=== PATIENT | female | born 1950 | race Caucasian/White ===

== ENCOUNTER → 2019-09-14 | Outpatient (CLI) | payer MEDICARE ==
[2019-09-14 12:32] LABS: HCT 38.5 % (34.0-46.0); HGB 12.4 gm/dL (11.4-16.0); MCH 30.6 pg (25.0-35.0); MCHC 32.2 g/dL (31.0-37.0); MCV 95.1 fL (80.0-100.0); Mean Platelet Volume 7.2; Platelet Count 314 k/uL (150-450); RBC 4.05 m/uL (3.80-5.40); RDW 12.8 % (11.5-15.5); WBC 6.9 k/uL (3.8-10.6)
[2019-09-14 12:39] LABS: INR 0.9 (<1.2); Partial Thromboplastin Time 22.8 sec (22.0-30.0); Prothrombin Time 9.6 sec (9.0-12.0)
[2019-09-14 12:40] LABS: Appearance,Urine Clear (Clear); Bilirubin,Urine Negative (Negative); Blood,Urine Negative (Negative); Color,Urine Light Yellow; Glucose,Urine (UA) Negative (Negative); Ketones,Urine Negative (Negative); Leukocyte Esterase,Urine Negative (Negative); Nitrite,Urine Negative (Negative); Protein,Urine Negative (Negative); Specific Gravity,Urine 1.007 (1.001-1.035); Urobilinogen,Urine <2.0 mg/dL (<2.0)
[2019-09-14 12:45] LABS: ALT 16 U/L (4-34); AST 24 U/L (14-36); African American GFR (CKD) >90 (>60 ml/min/1.73 sqM); Albumin 3.5 g/dL (3.5-5.0); Alkaline Phosphatase 75 U/L (38-126); Anion Gap 4 mmol/L; Blood Urea Nitrogen 14 mg/dL (7-17); Carbon Dioxide 30 mmol/L (22-30); Chloride 104 mmol/L (98-107); Glucose 80 mg/dL (74-99); Non-African American GFR(CKD) >90 (>60 ml/min/1.73 sqM); Potassium 4.5 mmol/L (3.5-5.1); Sodium 138 mmol/L (137-145); Total Bilirubin 0.2 mg/dL (0.2-1.3); Total Protein 5.8 g/dL (6.3-8.2)
== END | disposition home or self-care (01) ==
LOC: LABPAT 10:56
PROVIDERS: ATTEND Orthopaedic Surgery
DX: Z01.818 Encounter for other preprocedural examination (principal); Z01.812 Encounter for preprocedural laboratory examination
CPT/HCPCS: 80053; 81003; 85027; 85610; 85730; 87070

== ENCOUNTER 2019-09-25 12:48 | Day surgery (SDC) | payer MEDICARE ==
[2019-09-24 12:26] VITALS: BMI 19.3
[~2019-09-25 12:48] MED LIST: ACETAMINOPHEN TAB 500 MG TAB PO ONE; BISACODYL 10 MG SUPP RECTAL PRN; DEXAMETHASONE SOD PHOSPHATE 10 MG/ML 1 ML VIAL IV ONE; DIAZEPAM 5 MG TAB PO PRN; GABAPENTIN 300 MG CAP PO ONE; HYDROcodone/APAP 5-325MG 1 EACH TAB PO PRN; HYDROmorphone 0.5 MG/0.5 ML SYRINGE IVP PRN; LIDOCAINE 1% (10MG/ML) FOR IV START INTRADERMA PRN; MAGNESIUM HYDROXIDE 2,400 MG/10 ML CUP PO PRN; MELOXICAM 7.5 MG TAB PO ONE; NA PHOS,M-B/NA PHOS,DI-BA 133 ML ENEMA RECTAL PRN; NALOXONE 0.4 MG/ML 1 ML VIAL IV PRN; ONDANSETRON 4 MG/2 ML VIAL IVP ONE; ONDANSETRON 4 MG/2 ML VIAL IVP PRN; ROPIVACAINE 246.25 MG, EPINEPHrine 0.5 MG, KETOROLAC 30 MG, cloNIDine HCL/PF 80 MCG, WA... MISCELLANE ONE; SCOPOLAMINE 1.5MG/72HR PATCH TRANSDERM ONE; TRANEXAMIC ACID 1,000 MG in SODIUM CHLORIDE 0.9% 100 ML IVPB ONE; hydrOXYzine PAMOATE 25 MG CAP PO PRN
[2019-09-25] MEDS: LACTATED RINGERS 1,000 ML IV SCH (13:23)
[2019-09-25] MEDS ORDERED: MIDAZOLAM 2 MG/2 ML VIAL IV ONE (13:35)
[2019-09-25] MEDS ORDERED: MIDAZOLAM 2 MG/2 ML VIAL ONE (13:59)
[2019-09-25] MEDS ORDERED: SODIUM CHLORIDE 0.9% 100 ML BAG ONE (13:59)
[2019-09-25] MEDS ORDERED: TRANEXAMIC ACID 1,000 MG/10 ML VIAL ONE (13:59)
[2019-09-25] MEDS ORDERED: fentaNYL (PF) 50 MCG/ML 2 ML AMP ONE (13:59)
[2019-09-25] MEDS ORDERED: ceFAZolin 3,000 MG in SODIUM CHLORIDE 0.9% IRRIGATIO 3,000 ML IRRIGATION ONE (14:03)
[2019-09-25] MEDS ORDERED: ROPIVACAINE 0.2%-NS ON-Q PUMP 1,090 MG, EMPTY PAIN BALL 1 EACH MISCELLANE PRN (14:39)
--- NOTE | 2019-09-25 14:39 | P.ANPRN ---
Procedure Note - Anesthesia - Nerve Block Performed Left Adductor Canal Infusion Date of Procedure: 09/25/19 Procedure Start Time: 13:34 Procedure Stop Time: 13:48 Location of Patient: PreOp Indication: Acute Post-Operative Pain, Requested by Surgeon Sedation Type: Sedate with meaningful contact maintained Preparation: Sterile Prep, Sterile Dressing Position: Supine Catheter: Indwelling Needle Types: Pajunk Needle Gauge: 21 Ultrasound used to visualize needle placement: Yes Ultrasound used to observe medication spread: Yes Blood Aspirated: No Pain Paresthesia on Injection Noted: No Resistance on Injection: Normal Image Stored and Saved: Yes Events: Uneventful and Well Tolerated (20 mls of ropivacaine 0.5%)
--- NOTE | 2019-09-25 15:33 | P.OP ---
Date of Procedure: 09/25/19 Preoperative Diagnosis: Severe medial compartment osteoarthritis left knee Postoperative Diagnosis: Severe tricompartmental osteoarthritis left knee Procedure(s) Performed: Left total knee arthroplasty Implants: [employer] Nephew Cruciate Retaining Journey II CR Oxinium Femoral Component size 6, left Justin & Nephew Journey Nonporous Tibial Baseplate size 5, left [employer]hew Journey II DEEP DISHED, XLPE Articular Insert, 9 mm, size 5-6 Jsutin [employer] Nephew Lilly II Resurfacing Patellar Component, Oval, 29 mm All components were cemented using Palacose R bone cement. The articulation is Oxinium on polyethylene. Anesthesia: spinal Surgeon: Frank Mooney Electrical Engineering Manager #1: [place] Estimated Blood Loss (ml): 50 Pathology: other (Bone and cartilage) Condition: stable Disposition: PACU Indications for Procedure: After failure of conservative treatment we discussed the surgical and nonsurgical treatment options at length. Patient wishes to proceed with a medial unicompartmental knee arthroplasty. The possibility of a conversion to a total knee arthroplasty was also discussed with the patient. She is aware of this as well. Complications specific to this procedure were discussed at length, including but not limited to infection, bleeding, stiffness, and nerve injury. Covid-19 was also discussed at length with the patient, and they are aware of the current policies and procedures. The patient was given the option of delaying surgery, but they elect to proceed knowing these risks. Patient is aware of all these complications and informed consent was obtained Operative Findings: The operative findings are consistent with severe tricompartmental osteoarthritis of the left knee. Due to the severe tricompartmental osteoarthritis, a unicompartmental knee replacement was not indicated based on the intraoperative findings. Description of Procedure: Patient was seen in the preoperative area consent was reviewed and operative site was marked with a skin marker. An adductor canal pain catheter was placed by anesthesia in the preoperative area. Patient was then brought to the operating room and given preoperative antibiotics intravenously. A spinal anesthetic was administered by the anesthesia department. A tourniquet was placed on the upper thigh and the lower extremity was prepped and draped in usual sterile fashion. A gram of transexamic acid was given. A universal timeout was then performed which confirmed the patient's name, surgical site, ALLERGIES, and consent. The lower extremity was then exsanguinated and tourniquet was inflated to 250 mmHg. A standard and anterior midline approach to the knee was performed. The skin and subcutaneous tissue was dissected down to the patellar tendon. A medial parapatellar arthrotomy was then performed. The knee was then visually inspected. There is found to be severe articular damage in the medial, lateral, and patellofemoral compartments. Based on this fact, a medial unicompartmental knee replacement was not indicated, and the decision was made to proceed on with a total knee arthroplasty. The knee was then extended, the patellar was everted, and the knee was again flexed. The patellar fat pad was removed in order to enhance exposure. Anterior horns of both menisci were excised, and a release was performed to the posterior medial aspect of the knee. On gross visual inspection, there was complete loss of articular cartilage in the medial and patellofemoral joint spaces. There was also significant cartilage damage in the lateral compartment. There were multiple periarticular osteophytes which were then removed with a Ronguer. The femoral canal was then opened with the 9.5 mm intramedullary drill. The 8 mm intramedullary danna was then inserted into the femoral canal. The distal femoral cutting guide was then placed and set for 5 of valgus. The distal femoral cutting block was then pinned in place. The intramedullary danna was then removed, and the distal femur was then cut. The cutting block was then removed and the cut was checked for symmetry. Next, the sizing guide was then placed and set for 3 external rotation based off of the epicondylar axis and Whitesides line. Pins were then placed and the drill holes, and the femur was sized with the sizing stylus. The pins were then removed, and the sizing guide was then removed. The spikes of the femoral block was then placed into the predrilled holes, and malleted into place. Two 45 mm pins were then placed into the fixation holes on the cutting block. An daniel wing was then used to ensure there would be no notching with the anterior cut. The anterior condyles were cut without notching. The anterior cord cut was then performed, followed by the posterior cut, posterior chamfer cut, and the anterior chamfer cut. The collateral ligaments were protected during the entire process. The cutting block was then removed, and the femoral canal was plugged with autologous bone. Attention was then directed to the tibia. The remaining ACL was removed with a Ronguer, and the tibia was then gently subluxed forward with a large bent knee retractor. Any remaining menisci was excised. The posterior lateral corner was cauterized in order to cauterize the lateral geniculate artery. The extra medullary tibial cutting guide was then placed, set for the appropriate rotat ion, slope, and depth of resection. The proximal tibia cutting guide was then pinned in place. Proximal tibia was then cut and sized. Next trials were then placed with the appropriate-sized insert. The knee was able to fully extend and flex to 130 and was stable throughout all range of motion. The knee was then extended, patella everted. Patella was then measured, and then using an osteotomy guide, the patella was cut at the appropriate level. The patella was then measured and drilled and the patella trial was then placed. The knee was then taken through range of motion with the patella trial and the patella tracked normally. The knee was then extended patella trial was then removed and the patella was everted. Knee was then flexed and lug holes were drilled through the femoral trial and the femoral trial was then removed. The tibial was then exposed, and the tibial broach guide was then pinned in place after it was set for the appropriate rotation to allow for the most coverage without overhang. The tibia was then reamed and broached. The cut surfaces of bone were then irrigated with pulsatile lavage. The posterior structures were injected with the ropivacaine solution. The knee was also irrigated with Irrisept solution. The components were then opened, the cement was mixed, and the components were then cemented in place. The cement was allowed to harden with the knee in full extension. While the cement was hardening, the remaining soft tissues were then injected with a ropivacaine solution, which consisted of 246.25 mg of ropivacaine, 0.5 mg of epinephrine, 30 mg of Toradol, 80 g of clonidine, and 48.45 mL of sterile water, for a total of 100 mL of fluid injected. After the cemented hardened. The tourniquet was released, and hemostasis was obtained. A second gram of transexamic acid was given. The knee was again irrigated. The knee was again taken through range of motion and found to be stable throughout all range of motion of 0-130, and the patella tracked normally. The fascia was then closed with #2 strata fix suture. The subcutaneous tissue was closed with 3-0 Vicryl and 3-0 strata fix. Dermabond glue was used for the skin and placed with the knee in flexion. The patient was placed in a sterile silver dressing. Patient was then transferred to recovery room in stable condition. The laboratory assistant OSCAR Caceres was required due the complexity surgery and the need for a skilled certified surgical first assistant. She assisted in positioning, draping, retraction, and closure of the wound.
[2019-09-25] MEDS ORDERED: LACTATED RINGERS 1,000 ML IV ONE (15:49)
--- NOTE | 2019-09-25 16:37 | XR ---
EXAMINATION TYPE: XR knee limited LT DATE OF EXAM: 09/25/2019 COMPARISON: None HISTORY: Replacement TECHNIQUE: 2 view left knee FINDINGS: Tibial and femoral components of in place. Postsurgical changes are within the soft tissues . No acute fractures or dislocations are evident. IMPRESSION: 1. No fracture post knee replacement
[2019-09-25] MEDS: SODIUM CHLORIDE 0.9% 1,000 ML IV SCH (17:37)
[2019-09-25] MEDS ORDERED: SENNOSIDES-DOCUSATE SODIUM 1 EACH TAB PO SCH (21:00)
[2019-09-25] MEDS: ASPIRIN 325 MG TAB PO SCH (21:46)
--- NOTE | 2019-09-26 01:23 | P.CONS ---
History of Present Illness - Reason for Consult Consult date: 09/25/19 Medical management - Chief Complaint Elective left total knee arthroplasty - History of Present Illness Patient is a 68-year-old female with a known history of smoking and osteoarthritis was admitted to the hospital for elective left total knee arthroplasty due to severe medial compartment osteoarthritis of the left knee. Patient states that she could not feel any pain at this time. Patient is currently morphine pump. Denies any complaints of fever or chills. No nausea vomiting or abdominal pain or diarrhea. No headache or dizziness or lightheadedness. No chest pain or shortness breath. Patient has been afebrile. Blood pressure was slightly weighted prior to surgery at 146/71. Currently saturating well on room air. Review of Systems Constitutional: Patient denies any fever or chills . No generalized weakness or weight loss. Abdomen: Patient denied nausea vomiting and diarrhea and abdominal pain. Cardiovascular: Patient denies any chest pain or short of breath no palpitations. Respiratory: patient denied any cough is from production. No shortness of breath Neurologic: Patient denied any numbness or tingling headache. Musculoskeletal: Patient denies any complaints of joint swelling or deformity. Skin: negative Psychiatric: Negative Endocrine: No heat or cold intolerance. No recent weight gain. Genitourinary: No dysuria or hematuria. All other 14 point ROS negative except the above Past Medical History Past Medical History: Osteoarthritis (OA) History of Any Multi-Drug Resistant Organisms: None Reported Additional Past Surgical History / Comment(s): COLONOSCOPY Past Anesthesia/Blood Transfusion Reactions: No Reported Reaction Smoking Status: Former smoker Past Alcohol Use History: Occasional Additional Past Alcohol Use History / Comment(s): QUIT SMOKING 25+YEARS AGO Past Drug Use History: None Reported - Past Family History Mother Family Medical History: Cancer Medications and Allergies Home Medications Medication Instructions Recorded Confirmed Type Celecoxib [CeleBREX] 100 mg PO DAILY 09/24/19 09/25/19 History traZODone HCL [Desyrel] 50 mg PO HS PRN 09/24/19 09/25/19 History Allergies Allergy/AdvReac Type Severity Reaction Status Date / Time iodine AdvReac Hallucinati Verified 09/25/19 13:14 ons mercury (elemental) AdvReac Hallucinati Verified 09/25/19 13:14 ons Physical Exam Vitals: Vital Signs Temp Pulse Pulse Resp BP Pulse Ox 09/25/19 16:20 87 16 111/59 96 09/25/19 16:05 64 16 110/60 97 09/25/19 15:50 97 F L 67 18 110/59 96 09/25/19 13:55 68 16 115/65 99 09/25/19 13:35 75 16 125/68 98 09/25/19 13:04 98.6 F 78 16 146/71 96 Intake and Output 09/25/19 09/25/19 09/25/19 06:59 14:59 22:59 Intake Total 1051 300 Output Total 50 Balance 1001 300 Intake: IV 1051 300 Output: Estimated Blood Loss 50 Other: Weight 53.4 kg 53.4 kg PHYSICAL EXAMINATION: Patient is lying in the bed comfortably, no acute distress, awake alert and oriented.. HEENT: Normocephalic. Neck is supple. Pupils reactive. Nostrils clear. Oral cavity is moist. Ears reveal no drainage. Neck reveals no JVD, carotid bruits, or thyromegaly. CHEST EXAMINATION: Trachea is central. Symmetrical expansion. , Bibasilar diminished air entry, Lung calle clear to auscultation and percussion. CARDIAC: Normal S1, S2 with no gallops. No murmurs ABDOMEN: Soft. Bowel sounds normal. No organomegaly. No abdominal bruits. Extremities: reveal no edema. No clubbing or cyanosis Neurologically awake, alert, oriented x3 with well-coordinated movements. No focal deficits noted Skin: No rash or skin lesions. Psychiatric: Coperative. Nonsuicidal Musculoskeletal: No joint swelling or deformity. Normal range of motion. Assessment and Plan Assessment: Status post left total knee arthroplasty. POD #0 Osteoarthritis Previous history of smoking DVT prophylaxis Plan: Patient will be continued on current pain medications and bowel regimen. Encourage incentive spirometry and ambulation. We will follow-up closely and further recommendations based on the clinical course. Monitor H&H. Thank you for your consult.
[2019-09-26] MEDS: SODIUM CHLORIDE 0.9% 1,000 ML IV SCH (02:43)
[2019-09-26] MEDS: LACTATED RINGERS 1,000 ML IV SCH (04:46)
[2019-09-26 06:15] VITALS: PULSE 76
--- NOTE | 2019-09-26 06:40 | P.PN ---
Progress Note - Text Progress Note Date: 09/26/19 The patient is doing well status post total knee replacement. Pain is well con trolled by a combination of local anesthetic infusion through the adductor canal catheter and oral analgesics. There are no signs of infection around the catheter skin entry site. The local anesthetic infusion will be continued as per protocol.
[2019-09-26 07:58] LABS: Basophils % (A) 0 %; Eosinophils # (A) 0.1 k/uL (0-0.7); Eosinophils % (A) 1 %; HCT 35.1 % (34.0-46.0); Lymphocytes # (A) 2.5 k/uL (1.0-4.8); Lymphocytes % (A) 20 %; MCH 30.2 pg (25.0-35.0); MCHC 31.5 g/dL (31.0-37.0); MCV 95.9 fL (80.0-100.0); Mean Platelet Volume 7.7; Monocytes # (A) 0.8 k/uL (0-1.0); Monocytes % (A) 6 %; Neutrophils # (A) 8.8 k/uL (1.3-7.7); Neutrophils % (A) 71 %; Platelet Count 264 k/uL (150-450); RBC 3.66 m/uL (3.80-5.40); RDW 12.7 % (11.5-15.5); WBC 12.3 k/uL (3.8-10.6)
[2019-09-26 08:14] VITALS: BP 100/62; RESP 16; TEMP 97.9
[2019-09-26] MEDS ORDERED: HYDROcodone/APAP 7.5-325MG 1 EACH TAB PO PRN ×2 (08:22)
--- NOTE | 2019-09-26 08:48 | P.DS ---
Providers Expected date of discharge: 09/26/19 Attending physician: Frank Mooney Consults: 09/25/19 11:21 Consult Physician Routine Consulting Provider: Jennyfer Rosas Consult Reason/Comments: medical management Do you want consulting provider notified?: Yes Primary care physician: Yahir Devlin - Discharge Diagnosis(es) (1) Osteoarthritis of left knee Current Visit: Yes Status: Acute (2) Status post total left knee replacement Current Visit: Yes Status: Acute Hospital Course: This is a 68-year-old female with known history of degenerative arthritis of the left knee. The patient presents for evaluation. After discussion and consideration patient elected to proceed with medial unicompartmental knee arthroplasty with possible total knee arthroplasty. The patient is seen preoperatively by Dr. Mooney and medically cleared for surgery by their primary care physician. Patient is admitted to [facility] on 09/25/2019 and left total knee arthroplasty is performed on this day. The procedures performed without complication or sequelae. The patient is doing well postoperatively. Labs and vital signs are stable on day of discharge. On day of discharge patient's knee incision is healing well. There is minimal erythema. There is no drainage noted at this time. There is minimal soft tissue swelling to the knee. Patient has full foot and ankle motion without difficulty or pain. Calf is soft and nontender to palpation. Neurovascular status to the left lower extremity is intact. Patient is discharged home in good condition. Opioid start talking form is reviewed and signed at patient bedside. Please see med rec for accurate list of home medications. Plan - Discharge Summary Discharge Rx Participant: Yes New Discharge Prescriptions: New Aspirin 325 mg PO BID #60 tab HYDROcodone/APAP 7.5-325MG [[place] 7.5-325] 1 - 2 tab PO Q6H PRN #56 tab PRN Reason: Pain Sennosides [Senokot] 2 tab PO DAILY PRN #60 tablet PRN Reason: Constipation No Action traZODone HCL [Desyrel] 50 mg PO HS PRN PRN Reason: Insomnia Celecoxib [CeleBREX] 100 mg PO DAILY Discharge Medication List Celecoxib [CeleBREX] 100 mg PO DAILY 09/24/19 [History] traZODone HCL [Desyrel] 50 mg PO HS PRN 09/24/19 [History] Aspirin 325 mg PO BID #60 tab 09/26/19 [Rx] HYDROcodone/APAP 7.5-325MG [[place] 7.5-325] 1 - 2 tab PO Q6H PRN #56 tab 09/26/19 [Rx] Sennosides [Senokot] 2 tab PO DAILY PRN #60 tablet 09/26/19 [Rx] Follow up Appointment(s)/Referral(s): Yahir Devlin MD [Primary Care Provider] - 1 Week Frank Mooney DO [Doctor of Osteopathic Medicine] - 10/10/19 10:00 am Ambulatory/Diagnostic Orders: Continuous Passive Motion (CPM) Machine [DME.AMB1] Time Frame: 3 Weeks, Location: None Selected Patient Instructions/Handouts: *Surgery [facility] - On-Q Pain Pump Discharge Instructions, Knee Replacement (DC) Activity/Diet/Wound Care/Special Instructions: Weightbearing as tolerated with a walker. CPM 5-6h daily. Leave dressing intact. May be removed by home care nurse or by patient in 10 days. May shower with dressing on. Recommend use of compression stockings daily until follow up to help prevent swelling and blood clots. May remove at night before sleeping. Please follow up with [facility] and call with any questions or concerns, . Discharge Disposition: HOME WITH HOME HEALTH SERVICES
[2019-09-26] MEDS ORDERED: MELOXICAM 7.5 MG TAB PO SCH (09:00)
[2019-09-26] MEDS: ASPIRIN 325 MG TAB PO SCH (09:22)
--- NOTE | 2019-09-26 16:23 | P.PN ---
Subjective Progress Note Date: 09/26/19 Principal diagnosis: Patient is a 68-year-old female with a known history of smoking and osteoarthritis was admitted to the hospital for elective left total knee arthroplasty due to severe medial compartment osteoarthritis of the left knee. Patient states that she could not feel any pain at this time. Patient is currently morphine pump. Denies any complaints of fever or chills. No nausea vomiting or abdominal pain or diarrhea. No headache or dizziness or lightheadedness. No chest pain or shortness breath. Patient has been afebrile. Blood pressure was slightly weighted prior to surgery at 146/71. Currently saturating well on room air. 09/26/2019 Patient is seen and evaluated and follow-up status post left knee arthroplasty with no acute overnight issues. Subcutaneous Epidural pump noted. Patient states she is being discharged today. Patient states she is passing gas but has not had a bowel movement yet. Patient denies any nausea or vomiting and is tolerating diet. Currently no reports of chest pain, shortness of breath, or palpitations. Medications have been resumed. Patient is maintained on aspirin at this time. Objective - Vital Signs Vital signs: Vital Signs Temp 97.9 F 09/26/19 07:52 Pulse 76 09/26/19 03:35 Resp 16 09/26/19 07:52 BP 100/62 09/26/19 07:52 Pulse Ox 95 09/26/19 07:52 Intake & Output 09/25/19 09/26/19 09/26/19 18:59 06:59 18:59 Intake Total 1351 Output Total 50 Balance 1301 Weight 53.4 kg Intake: IV 1351 Output: Estimated Blood Loss 50 Other: Voiding Method Toilet # Voids 2 - Exam Patient is sitting up in the bed comfortably, no acute distress, awake alert and oriented.. HEENT: Normocephalic. Neck is supple. Pupils reactive. Nostrils clear. Oral cavity is moist. Ears reveal no drainage. Neck reveals no JVD, carotid bruits, or thyromegaly. CHEST EXAMINATION: Trachea is central. Symmetrical expansion. , Bibasilar di minished air entry, Lung calle clear to auscultation and percussion. CARDIAC: Normal S1, S2 with no gallops. No murmurs ABDOMEN: Soft. Bowel sounds normal. No organomegaly. No abdominal bruits. Extremities: reveal no edema. No clubbing or cyanosis. Left knee arthroplasty surgical dressing noted is dry and intact subcutaneous epidural pump also noted Neurologically awake, alert, oriented x3 with well-coordinated movements. No focal deficits noted Skin: No rash or skin lesions. Psychiatric: Cooperative. Non-suicidal Musculoskeletal: No joint swelling or deformity. Normal range of motion. - Labs CBC & Chem 7: 09/26/19 07:13 Labs: Abnormal Lab Results - Last 24 Hours (Table) 09/26/19 Range/Units 07:13 WBC 12.3 H (3.8-10.6) k/uL RBC 3.66 L (3.80-5.40) m/uL Hgb 11.0 L (11.4-16.0) gm/dL Neutrophils # 8.8 H (1.3-7.7) k/uL Assessment and Plan Assessment: Status post left total knee arthroplasty. POD #1 Osteoarthritis Previous history of smoking DVT prophylaxis Plan: Patient will be continued on current pain medications and bowel regimen. Patient is passing gas but has not had a bowel movement yet. Tolerating diet with no reports of nausea or vomiting noted. Encourage incentive spirometry and ambulation. We will continue to follow closely with orthopedic surgery and further recommendations based on the clinical course. Hemoglobin this morning is stable at 11.0. Patient is planning on discharging today. Patient will continue with physical therapy in the outpatient setting.
== END 2019-09-26 11:43 | disposition home health service (06) ==
LOC: OR 12:48 → 4SSUR 15:41 → OR 09-26 11:43
PROVIDERS: ATTEND Orthopaedic Surgery
DX: M17.0 Bilateral primary osteoarthritis of knee (principal); M23.303 Other meniscus derangements, unspecified medial meniscus, right knee; H91.90 Unspecified hearing loss, unspecified ear; Z97.3 Presence of spectacles and contact lenses; Z87.891 Personal history of nicotine dependence; Z79.899 Other long term (current) drug therapy; Z79.1 Long term (current) use of non-steroidal anti-inflammatories (NSAID); Z80.9 Family history of malignant neoplasm, unspecified; Z88.8 Allergy status to other drugs, medicaments and biological substances; Z91.048 Other nonmedicinal substance allergy status
CPT/HCPCS: 97110; 97161; 64448; 76942; 85025; 73560; 27447; C1713; C1776; J2250; J0171; J1100; J0690 ×3; J2405; J1885; J2795 ×2; J0735; J1170; 88300